=== PATIENT | male | born 1965 ===

== ENCOUNTER → 2021-05-13 10:44 | Outpatient (BNVA) | payer MEDICAID, SELFPAY | PROVIDERS: PCP Internal Medicine; Visit Provider Urology | DX: N48.6 Induration penis plastica (principal); N41.9 Inflammatory disease of prostate, unspecified; R39.15 Urgency of urination; E11.9 Type 2 diabetes mellitus without complications; I10 Essential (primary) hypertension; F41.9 Anxiety disorder, unspecified | CPT/HCPCS: 99202 ==

== ENCOUNTER 2023-02-24 13:40 | Outpatient (AMB) | payer MEDICAID, SELFPAY ==
--- NOTE | 2023-02-24 13:46 | A.OFFVIS_ITS ---
Intake Intake Visit Reasons: Prostatitis- follow up Intake Note: Patient presents for follow up prostatitis/peyronie's disease Urology Medications: tadalafil Blood Thinner: none Organic Preparation Analyst Required: No Accompanied by: Self / Same As Patient Allergies Sulfa (Sulfonamide Antibiotics) Allergy (Unknown, Verified 02/25/23 14:33) Unknown Medication List - Last Reconciled 02/25/23 by Irma Ruelas, MILLED RICE BROKER- amlodipine 10 mg PO DAILY buprenorphine-naloxone 4-1 mg (Suboxone) 5 mg sublingual BEDTIME clonazepam 0.5 mg PO TID PRN insulin glargine (Lantus Solostar U-100 Insulin) units subcut lisinopril 40 mg PO DAILY metformin 500 mg PO DAILY pen needle, diabetic (BD Ultra-Fine Short Pen Needle) As directed pentoxifylline ER 400 mg PO BID 90 days sertraline 0 mg PO tadalafil 5 mg PO DAILY PRN 90 days tadalafil (Cialis) 5 mg PO DAILY 90 days vitamin E (dl, acetate) 450 mg PO DAILY 90 days HPI HPI Comments History of Present Illness Details Claude is a very pleasant 57-year-old male patient of Dr. Lozano. He has a past medical history of anxiety, diabetes, and hypertension. He presents to the office today for follow-up of his erectile dysfunction and Peyronie's disease. In discussion with the patient today reports to be doing and feeling well. He discusses following up with Dr. Antoine and Dr. Juarez in the past for his erectile dysfunction and Peyronie's disease. He discusses having had injection therapy for Peyronie's disease with Dr. Juarez however feels this has not been beneficial. He discusses feeling erectile dysfunction is worsening. Discussed at length uncontrolled diabetes and Suboxone in relation to erectile dysfunction. Patient discusses she continues to wean off of Suboxone and is attempting to better control his diabetes. He also has longstanding history of chronic prostatitis. He currently denies any urinary issues or concerns. He denies urinary urgency, urinary frequency, incontinence, nocturia, hematuria, foul smelling urine, changes to urinary stream, flank pain, fever, and or chills. He is happy with his current voiding parameters. He reports chronic dysuria. In office urinalysis results reviewed with the patient today. [facility] Medical History Anxiety Diabetes mellitus HTN (hypertension) Review of Systems Const Reports as per HPI Eyes Reports no additional complaints ENT Reports no additional complaints Card Reports as per HPI Resp Reports no additional complaints GI Reports no additional complaints Reports as per HPI Musc Reports no additional complaints Neuro Reports no additional complaints Psych Reports no additional complaints Endo Reports as per HPI Duncan/Lymph Reports no additional complaints Aller/Immun Reports no additional complaints Physical Exam Const General: cooperative, healthy appearing, comfortable, no acute distress, well developed, alert and awake Orientation/consciousness: patient oriented x3 Limitations: no limitations HEENT Head: Yes normal to inspection, Yes normocephalic and Yes atraumatic Ears: hearing grossly normal bilaterally Eyes General: appearance normal, both eyes and all related structures Neck Neck: Yes normal visual inspection and Yes trachea midline Chest Chest palpation & inspection: normal inspection of the chest Resp Effort & Inspection: normal respiratory effort and able to speak in complete sentences Cardio Rate: regular rate GI Inspection: Yes normal to inspection General: Yes no CVA tenderness Penis: uncircumcised Meatus: meatus normal Scrotum: scrotum normal Testes: Testes normal Back/Spine/Pelvis Back: no CVA tenderness Skin General skin exam: no rashes or lesions noted Neuro General: patient oriented x3 Extrem General: Yes normal to inspection Psych Appearance: grossly normal and well kempt Mental Status: mental status grossly normal Speech and movement: Normal speech and movement present and Clear speech present Affect: normal affect Attitude: cooperative Thought process: Normal thought process present Thought content: Normal thought content present Results AMB Urinalysis, Automated UA Leukoctes 0 Jelani/uL Last Edit by Selina Tijerina on 02/24/23 14:13 UA Nitrite Negative Last Edit by Selina Tijerina on 02/24/23 14:13 UA Urobilinogen 0.2 mg/dL Last Edit by Selina Tijerina on 02/24/23 14:13 UA Protein 30 mg/dL Last Edit by Selina Tijerina on 02/24/23 14:13 UA pH 5.5 Last Edit by Selina Tijerina on 02/24/23 14:13 UA Blood 0 Eliceo/uL Last Edit by Selina Tijerina on 02/24/23 14:13 UA Specific [place] 1.030 Last Edit by Jaymeanderson Queenlaura on 02/24/23 14:13 UA Ketone Positive Last Edit by Manuelitopayton Bernicelaura on 02/24/23 14:13 UA Bilirubin 0 mg/dL Last Edit by Selina Bernicelaura on 02/24/23 14:13 UA Glucose 250 mg/dL Last Edit by Selina Bernicelaura on 02/24/23 14:13 Results Reviewed Results Reviewed: Laboratory Last Values Urine pH (Auto) 5.5 02/24/23 14:09 Specific [place] (Auto) 1.030 02/24/23 14:09 Urine Protein (Auto) 30 mg/dL 02/24/23 14:09 Glucose (UA)(Auto) 250 mg/dL 02/24/23 14:09 Urine Ketones (Auto) Positive 02/24/23 14:09 Urine Blood (Auto) 0 Eliceo/uL 02/24/23 14:09 Urine Nitrite (Auto) Negative 02/24/23 14:09 Urine Bilirubin (Auto) 0 mg/dL 02/24/23 14:09 Urine Urobilinogen (Auto) 0.2 mg/dL 02/24/23 14:09 Leukocyte Esterase (Auto) 0 Jelani/uL 02/24/23 14:09 Assessment & Plan Assessment & Plan (1) Peyronie's disease: Code(s): N48.6 - Induration penis plastica (2) Erectile dysfunction associated with type 2 diabetes mellitus: Code(s): E11.69 - Type 2 diabetes mellitus with other specified complication; N52.1 - Erectile dysfunction due to diseases classified elsewhere (3) Prostatitis: Code(s): N41.9 - Inflammatory disease of prostate, unspecified Plan In office urinalysis results reviewed with the patient today. Patient reports chronic dysuria with longstanding history of prostatitis. Discussed at length importance of continuing to decrease Suboxone dose if possible as well as managing diabetes for improvement in erectile dysfunction as well as overall health and well-being. Discussed importance of activity daily, healthy eating habits, and weight loss for improvement in erectile dysfunction as well as overall health and well- being. Information provided on Peyronie's disease Discussed Peyronie's disease at length Start pentoxifylline and vitamin-E. Discussed penile pump and importance of taking pictures of penis while erect for follow up with Dr. Antoine. Start low-dose Cialis 5 mg daily. Will obtain PSA for further assessment evaluation. Follow-up in [address] Antoine; or sooner with any issues, concerns, and or questions. Orders: Orders Prostate Specific Antigen Today N40.0 - Benign prostatic hyperplasia without lower urinary tract symptoms AMB Urinalysis Automated 02/24/23 Z13.9 - Encounter for screening, unspecified Medications: New pentoxifylline ER administer with meals 400 mg PO BID 90 days 180 tabs 1RF vitamin E (dl, acetate) 450 mg PO DAILY 90 days 90 caps 1RF N48.6 - Induration penis plastica tadalafil (Cialis) [id number] [facility] [id number] Member [id number] 5 mg PO DAILY 90 days 90 tabs 1RF Patient Instructions: The patient had an opportunity to ask questions regarding the treatment plan. All questions were answered. Physical exam, labs, and imaging were discussed and reviewed in detail. As well as risks, benefits, and discussion of treatment choices. No major barriers to understanding were identified. The patient expressed understanding and agreement with the above treatment plan. The patient was made aware they should contact our office by phone for worsening of their current condition, the appearance of new symptoms, or with any questions or concerns. Compliance is encouraged with any medications and follow up testing that is ordered. It is a privilege to be allowed the opportunity to participate in? your urological care.? Again, if you have any questions or concerns If you have any questions or concerns please do not hesitate to contact me. The office is [phone]. This note is constructed using voice recognition software. While every effort has been made to ensure accuracy production stage manager errors may have been included. Yours sincerely, CRISTIN Francis- Coding Level of Care Code Est Pt Level 4 (40290) Diagnoses Peyronie's disease N48.6 Erectile dysfunction associated with type 2 diabetes mellitus E11.69; N52.1 Prostatitis N41.9
== END 2023-02-24 14:44 | disposition home or self-care (01) ==
PROVIDERS: PCP Internal Medicine; Visit Provider Nurse Practitioner Family
DX: Z13.9 Encounter for screening, unspecified (principal)
CPT/HCPCS: 99214

== ENCOUNTER → 2023-02-24 13:40 | Outpatient (BNVA) | payer MEDICAID, SELFPAY | PROVIDERS: PCP Internal Medicine; Visit Provider Nurse Practitioner Family | DX: N48.6 Induration penis plastica (principal); N41.9 Inflammatory disease of prostate, unspecified; E11.69 Type 2 diabetes mellitus with other specified complication; N52.1 Erectile dysfunction due to diseases classified elsewhere | CPT/HCPCS: 81003; 99212 ==

== ENCOUNTER 2023-10-06 09:04 | Outpatient (AMB) | payer MEDICAID, SELFPAY ==
--- NOTE | 2023-10-06 09:43 | MHC.OFFVIS ---
Intake Intake Visit Reasons: follow up/prostatitis(confirmed) Intake Note: Patient presents for follow up prostatitis/peyronie's disease Urology Medications: tadalafil Blood Thinner: none Developmental Psychologist Required: No Accompanied by: Self / Same As Patient Allergies Sulfa (Sulfonamide Antibiotics) Allergy (Unknown, Verified 10/06/23 09:45) Unknown Medication List - Last Reconciled 10/06/23 by David Antoine MD amlodipine 10 mg PO DAILY buprenorphine-naloxone 4-1 mg (Suboxone) 5 mg sublingual BEDTIME clonazepam 0.5 mg PO TID PRN insulin glargine (Lantus Solostar U-100 Insulin) units subcut levofloxacin 500 mg PO Q24H 7 days lisinopril 40 mg PO DAILY metformin 500 mg PO DAILY pen needle, diabetic (BD Ultra-Fine Short Pen Needle) As directed pentoxifylline ER 400 mg PO BID 90 days sertraline 0 mg PO tadalafil 10 mg PO DAILY 90 days vitamin E (dl, acetate) 450 mg PO DAILY 90 days HPI HPI Comments History of Present Illness Details Claude is a pleasant male. He is a patient of Dr. Lozano. He is seen for following urologic conditions - Peyronie's disease - urinary urgency and frequency Peyronie's with prior injections Erectile dysfunction from diabetes - metformin with insulin Suboxone usage Prior trial oral antioxidants with vacuum pump Retrial vacuum pump with antioxidants Check testosterone and PSA at next visit Peyronie's disease Primary complaint is - hourglass to normally at base of penis follow-up trauma The problem has been present - recently At this time he experiences - partial erections that under rapid detumescence after penetration [place] has - is possible Associated symptoms include penile pain No penile discharge No Prior management includes - no treatment to date Associated conditions Trial of oral medications with VAC therapy PFSH Medical History Anxiety Diabetes mellitus HTN (hypertension) Review of Systems Const Denies chills and Denies fever(s) Card Reports no additional complaints and Denies syncope Resp Denies cough GI Denies abdominal pain and Denies heartburn Reports as per HPI and Denies change in libido Neuro Denies syncope Psych Denies change in libido Endo Denies change in libido Physical Exam Const General: cooperative, healthy appearing, comfortable and no acute distress Orientation/consciousness: patient oriented x3 HEENT Face and sinus: Yes normal facial exam Mouth: moist mucous membranes Neck Neck: Yes normal visual inspection, Yes full ROM and Yes trachea midline Chest Chest palpation & inspection: normal inspection of the chest Resp Effort & Inspection: normal respiratory effort, able to speak in complete sentences and no respiratory distress GI Inspection: Yes normal to inspection Back/Spine/Pelvis Cervical Spine: normal cervical lordosis Thoracic/Lumbar Spine: thoracic and lumbar spine normal to inspection Skin General skin exam: no rashes or lesions noted Neuro General: patient oriented x3, gait normal, tone normal and moves all extremities Extrem General: Yes normal to inspection and Yes capillary refill normal Assessment & Plan Assessment & Plan (1) Prostatitis: Code(s): N41.9 - Inflammatory disease of prostate, unspecified (2) Erectile dysfunction associated with type 2 diabetes mellitus: Code(s): E11.69 - Type 2 diabetes mellitus with other specified complication; N52.1 - Erectile dysfunction due to diseases classified elsewhere Plan Three-month follow-up Orders: Orders Prostate Specific Antigen 3 Months E11.69 - Type 2 diabetes mellitus with other specified complication, N52.1 - Erectile dysfunction due to diseases classified elsewhere Testosterone, Free/Total 3 Months E11.69 - Type 2 diabetes mellitus with other specified complication, N52.1 - Erectile dysfunction due to diseases classified elsewhere Patient Instructions: Imaging studies, laboratory and physical exam results were discussed and reviewed in detail. No major barriers to patient understanding were identified. An opportunity to ask questions regarding the treatment plan was provided. All questions were answered. The patient expressed understanding and agreement with the above treatment plan. The patient is aware they should contact our office by phone for worsening of their current condition or the appearance of new urologic symptoms. Compliance is encouraged with any medications and followup testing that is ordered. It is a privilege to participate in the urologic care of your patient. If you have any questions or concerns regarding treatment for the above conditions, or other urologic issues, please do not hesitate to contact me. The office telephone contact is [phone]. This note is constructed using voice recognition software. While every effort has been made to ensure accuracy cyber defense forensics analyst errors may have been included. Yours sincerely, Dr David Antoine MD, [facility] - Urology Providers of Expert, Compassionate Care for the Genitourinary System Coding Level of Care Code Est Pt Level 4 (81006) Diagnoses Prostatitis N41.9 Erectile dysfunction associated with type 2 diabetes mellitus E11.69; N52.1
== END 2023-10-06 10:07 | disposition home or self-care (01) ==
PROVIDERS: PCP Internal Medicine; Visit Provider Urology
DX: N41.9 Inflammatory disease of prostate, unspecified (principal); E11.69 Type 2 diabetes mellitus with other specified complication; N52.1 Erectile dysfunction due to diseases classified elsewhere
CPT/HCPCS: 99214

== ENCOUNTER → 2023-10-06 09:04 | Outpatient (BNVA) | payer MEDICAID, SELFPAY | PROVIDERS: PCP Internal Medicine; Visit Provider Urology | DX: E11.69 Type 2 diabetes mellitus with other specified complication (principal); N52.1 Erectile dysfunction due to diseases classified elsewhere; N41.9 Inflammatory disease of prostate, unspecified | CPT/HCPCS: 99212 ==

== ENCOUNTER 2023-11-15 11:31 | Outpatient (REF) | payer MEDICAID, SELFPAY ==
[2023-11-15 13:39] LABS: Prostate Specific Antigen 0.25 ng/mL (<0.05-4.0)
[2023-11-19 16:39] LABS: Testosterone, Free 51.3 pg/mL (35.0-155.0); Testosterone, Total 315 ng/dL (250-1100)
== END 2023-11-15 11:32 | disposition home or self-care (01) ==
LOC: HO.10HDL 11:31
PROVIDERS: Visit Provider Urology
DX: E11.69 Type 2 diabetes mellitus with other specified complication (principal); N52.1 Erectile dysfunction due to diseases classified elsewhere
CPT/HCPCS: 36415; 84153; 84402; 84403

== ENCOUNTER 2024-01-02 15:36 | Outpatient (AMB) | payer MEDICAID, SELFPAY ==
--- NOTE | 2024-01-02 15:46 | A.OFFVIS_ITS ---
Intake Visit Reasons: 3m/PSA/Testo(set) Intake Note: Patient is Present for Follow Up Urology Medication: Tadalafil Antibiotic Allergies:Sulfa Blood Thinners: None Allergies Sulfa (Sulfonamide Antibiotics) Allergy (Unknown, Verified 01/02/24 15:47) Unknown HPI Comments Details: Claude is a pleasant male. He is a patient of Dr. Lozano. He is seen for following urologic conditions - Peyronie's disease - urinary urgency and frequency Follow-up Testosterone 315, free T 51 normal range Initiate testosterone 2 pumps daily 2 month follow-up labs Peyronie's with prior injections Erectile dysfunction from diabetes - metformin with insulin Suboxone usage Peyronie's disease Primary complaint is - hourglass to normally at base of penis follow-up trauma The problem has been present - recently At this time he experiences - partial erections that under rapid detumescence after penetration [place] has - is possible Associated symptoms include penile pain No penile discharge No Prior management includes - no treatment to date Associated conditions Trial of oral medications with VAC therapy [facility] Medical History Diabetes mellitus Anxiety HTN (hypertension) Review of Systems Const Denies chills and Denies fever(s) Card Reports no additional complaints and Denies syncope Resp Denies cough GI Denies abdominal pain and Denies heartburn Reports as per HPI and Denies change in libido Neuro Denies syncope Psych Denies change in libido Endo Denies change in libido Physical Exam Const General: cooperative, healthy appearing, comfortable and no acute distress Orientation/consciousness: patient oriented x3 HEENT Face and sinus: Yes normal facial exam Mouth: moist mucous membranes Neck Neck: Yes normal visual inspection, Yes full ROM and Yes trachea midline Chest Chest palpation & inspection: normal inspection of the chest Resp Effort & Inspection: normal respiratory effort, able to speak in complete sentences and no respiratory distress GI Inspection: Yes normal to inspection Back/Spine/Pelvis Cervical Spine: normal cervical lordosis Thoracic/Lumbar Spine: thoracic and lumbar spine normal to inspection Skin General skin exam: no rashes or lesions noted Neuro General: patient oriented x3, gait normal, tone normal and moves all extremities Extrem General: Yes normal to inspection and Yes capillary refill normal Assessment & Plan Assessment & Plan (1) Hypogonadism in male: Code(s): E29.1 - Testicular hypofunction Category: Medical Plan Initiate testosterone replacement Two month follow-up labs Orders: Orders Testosterone, Free/Total 2 Months E29.1 - Testicular hypofunction Medications: New testosterone apply 2 pumps over max area - alternate shoulders on alternate days 2 pumps topical DAILY 75 grams 1RF 30 days E29.1 - Testicular hypofunction, R79.89 - Other specified abnormal findings of blood chemistry Patient Instructions: Imaging studies, laboratory and physical exam results were discussed and re viewed in detail. No major barriers to patient understanding were identified. An opportunity to ask questions regarding the treatment plan was provided. All questions were answered. The patient expressed understanding and agreement with the above treatment plan. The patient is aware they should contact our office by phone for worsening of their current condition or the appearance of new urologic symptoms. Compliance is encouraged with any medications and followup testing that is ordered. It is a privilege to participate in the urologic care of your patient. If you have any questions or concerns regarding treatment for the above conditions, or other urologic issues, please do not hesitate to contact me. The office telephone contact is [phone]. This note is constructed using voice recognition software. While every effort has been made to ensure accuracy drafter (cad) electrical errors may have been included. Yours sincerely, Dr David Antoine MD, [facility] - Urology Providers of Expert, Compassionate Care for the Genitourinary System Coding Level of Care Code Est Pt Level 4 (64667) Diagnoses Hypogonadism in male E29.1
== END 2024-01-02 16:07 | disposition home or self-care (01) ==
PROVIDERS: PCP Internal Medicine; Visit Provider Urology
DX: E29.1 Testicular hypofunction (principal)
CPT/HCPCS: 99214

== ENCOUNTER → 2024-01-02 15:36 | Outpatient (BNVA) | payer MEDICAID, SELFPAY | PROVIDERS: PCP Internal Medicine; Visit Provider Urology | DX: N48.6 Induration penis plastica (principal); R39.15 Urgency of urination; R35.0 Frequency of micturition | CPT/HCPCS: 99212 ==

== ENCOUNTER 2024-03-18 12:10 | Outpatient (REF) | payer MEDICAID, SELFPAY ==
[2024-03-23 19:18] LABS: Testosterone, Free 73.3 pg/mL (35.0-155.0); Testosterone, Total 434 ng/dL (250-1100)
== END 2024-03-18 12:11 | disposition home or self-care (01) ==
LOC: HO.10HDL 12:10
PROVIDERS: Visit Provider Urology
DX: E29.1 Testicular hypofunction (principal)
CPT/HCPCS: 36415; 84402; 84403

== ENCOUNTER 2024-03-22 15:17 | Outpatient (AMB) | payer MEDICAID, SELFPAY ==
--- NOTE | 2024-03-22 15:19 | A.OFFVIS_ITS ---
Intake Visit Reasons: Test Lab results Intake Note: Patient is Present for Follow Up Urology Medication: Tadalafil Antibiotic Allergies:Sulfa Blood Thinners: None Rn Case Manager Required: No Allergies Sulfa (Sulfonamide Antibiotics) Allergy (Unknown, Verified 03/22/24 15:21) Unknown HPI Comments Details: Claude is a pleasant male. He is a patient of Dr. Lozano. He is seen for following urologic conditions - Peyronie's disease - urinary urgency and frequency Did not tolerate gel Has been off Suboxone Will try pituitary restart with eclomiphene Follow-up Testosterone 315, free T 51 normal range Peyronie's with prior injections Erectile dysfunction from diabetes - metformin with insulin Suboxone usage Peyronie's disease Primary complaint is - hourglass to normally at base of penis follow-up trauma The problem has been present - recently At this time he experiences - partial erections that under rapid detumescence after penetration [place] has - is possible Associated symptoms include penile pain No penile discharge No Prior management includes - no treatment to date Associated conditions Trial of oral medications with VAC therapy PFSH Medical History Diabetes mellitus Anxiety HTN (hypertension) Review of Systems Const Denies chills and Denies fever(s) Card Reports no additional complaints and Denies syncope Resp Denies cough GI Denies abdominal pain and Denies heartburn Reports as per HPI and Denies change in libido Neuro Denies syncope Psych Denies change in libido Endo Denies change in libido Physical Exam Const General: cooperative, healthy appearing, comfortable and no acute distress Orientation/consciousness: patient oriented x3 HEENT Face and sinus: Yes normal facial exam Mouth: moist mucous membranes Neck Neck: Yes normal visual inspection, Yes full ROM and Yes trachea midline Chest Chest palpation & inspection: normal inspection of the chest Resp Effort & Inspection: normal respiratory effort, able to speak in complete sentences and no respiratory distress GI Inspection: Yes normal to inspection Back/Spine/Pelvis Cervical Spine: normal cervical lordosis Thoracic/Lumbar Spine: thoracic and lumbar spine normal to inspection Skin General skin exam: no rashes or lesions noted Neuro General: patient oriented x3, gait normal, tone normal and moves all extremities Extrem General: Yes normal to inspection and Yes capillary refill normal Assessment & Plan Assessment & Plan (1) Erectile dysfunction associated with type 2 diabetes mellitus: Code(s): E11.69 - Type 2 diabetes mellitus with other specified complication; N52.1 - Erectile dysfunction due to diseases classified elsewhere Category: Medical (2) Hypogonadism in male: Code(s): E29.1 - Testicular hypofunction Category: Medical Plan Three-month follow-up lab work Orders: Orders Prostate Specific Antigen 3 Months E29.1 - Testicular hypofunction Testosterone, Total 3 Months E29.1 - Testicular hypofunction Patient Instructions: Imaging studies, laboratory and physical exam results were discussed and reviewed in detail. No major barriers to patient understanding were identified. An opportunity to ask questions regarding the treatment plan was provided. All questions were answered. The patient expressed understanding and agreement with the above treatment plan. The patient is aware they should contact our office by phone for worsening of their current condition or the appearance of new urologic symptoms. Compliance is encouraged with any medications and followup testing that is ordered. It is a privilege to participate in the urologic care of your patient. If you have any questions or concerns regarding treatment for the above conditions, or other urologic issues, please do not hesitate to contact me. The office telephone contact is [phone]. This note is constructed using voice recognition software. While every effort has been made to ensure accuracy clinical operations leader errors may have been included. Yours sincerely, Dr David Antoine MD, [facility] - Urology Providers of Expert, Compassionate Care for the Genitourinary System Coding Level of Care Code Est Pt Level 4 (43041) Diagnoses Erectile dysfunction associated with type 2 diabetes mellitus E11.69; N52.1 Hypogonadism in male E29.1
== END 2024-03-22 16:12 | disposition home or self-care (01) ==
PROVIDERS: PCP Internal Medicine; Visit Provider Urology
DX: E11.69 Type 2 diabetes mellitus with other specified complication (principal); N52.1 Erectile dysfunction due to diseases classified elsewhere; E29.1 Testicular hypofunction
CPT/HCPCS: 99214

== ENCOUNTER → 2024-03-22 15:17 | Outpatient (BNVA) | payer MEDICAID, SELFPAY | PROVIDERS: PCP Internal Medicine; Visit Provider Urology | DX: N48.6 Induration penis plastica (principal); R39.15 Urgency of urination; R35.0 Frequency of micturition | CPT/HCPCS: 99212 ==

== ENCOUNTER 2024-10-11 12:15 | Outpatient (REF) | payer MEDICAID, SELFPAY ==
--- OUTSIDE RECORDS SUMMARY | 2024-10-11 13:04 | XMS_ITS | Clinical Summary ---
Author Organization [facility] Address [address] [id number] Care Team Providers Care Business Center Attendant Name Role Phone Cameron Díaz MD Primary Care Provider [phone] Allergies Active Allergy Reactions Criticality Noted Date Comments Morphine 10/20/2017 Sulfa Antibiotics 10/20/2017 Medications Medication Sig Dispensed Refills Start Date End Date Status PRALUENT 75 MG/ML SOPN 0 10/18/2017 Active amLODIPine (NORVASC) tablet 5 mg TAKE 1 TABLET BY MOUTH EVERY DAY 3 09/11/2017 Active LANTUS SOLOSTAR 100 UNIT/ML injection INJECT 10 UNITS SUBCUTANEOUSLY ONCE A DAY 5 09/11/2017 Active lisinopril (PRINIVIL,ZESTRIL ) tablet 40 mg TAKE 1 TABLET BY MOUTH EVERY DAY 11 10/06/2017 Active sertraline (ZOLOFT) 100 MG tablet Take 150 mg by mouth daily. 3 08/01/2017 Active clopidogrel (PLAVIX) 75 MG tablet Take 1 tablet (75 mg total) by mouth daily. 30 tablet 2 04/01/2022 Active aspirin EC 81 MG tablet Take 1 tablet (81 mg total) by mouth daily. 30 tablet 2 04/01/2022 Active acetaminophen (TYLENOL) 325 MG tablet Take 2 tablets (650 mg total) by mouth every 6 (six) hours as needed for pain for up to 15 doses. 15 tablet 0 10/25/2022 Active cyclobenzaprine (FLEXERIL) 10 MG tablet Take 1 tablet (10 mg total) by mouth 3 (three) times a day as needed for muscle spasms for up to 15 doses. 15 tablet 0 10/25/2022 Active lidocaine (LIDODERM) 5 % Place 1 patch onto the skin daily. Remove & Discard patch within 12 hours or as directed by 30 patch 0 10/25/2022 Active Active Problems Problem Noted Date Diagnosed Date TIA (transient ischemic attack) 04/01/2022 Headache 04/01/2022 Microscopic hematuria UTI (urinary tract infection) Bladder pain Social History Tobacco Use Types Packs/Day Years Used Date Smoking Tobacco: Never Smokeless Tobacco: Never Alcohol Use Standard Drinks/Week Comments No 0 (1 standard drink = 0.6 oz pur e alcohol) Sex and Gender Information Value Date Recorded Sex Assigned at Male 04/01/2022 9:32 PM EDT Gender Identity Male 06/02/2023 11:13 AM EST Sexual Orientation Not on file Job Start Date Occupation Industry Not on file Not on file Not on file Last Filed Vital Signs Vital Sign Reading Time Taken Comments Blood Pressure 162/88 06/02/2023 2:05 PM EST Pulse 71 06/02/2023 2:05 PM EST Temperature 36.7 ??C (98.1 ??F) 06/02/2023 2:05 PM ES T Respiratory Rate 16 06/02/2023 2:05 PM EST Oxygen Saturation 93% 06/02/2023 10:41 AM EST Inhaled Oxygen Concentration - - Weight 86.2 kg (190 lb) 06/02/2023 10:41 AM EST Height 165.1 cm (5' 5 ) 06/02/2023 10:41 AM EST Body Mass Index 31.62 06/02/2023 10:41 AM EST Plan of Treatment Health Maintenance Due Date Last Done Comments Hepatitis C Screening 1965 COVID-19 Vaccine (#1) 05/12/1964 Depression Screening 1975 Preventative Health Evaluation 11/09/1981 DTap / Tdap / Td (1 - Tdap) 11/09/1982 Colon Cancer Screening (Colonoscopy) 11/09/2008 Shingrix-Zoster Vaccine (1 of 2) 11/09/2013 Influenza Vaccine (#1) 2024 RSV Adult > 60+ Yrs or Pregn ant (1 - 1-dose 75+ series) 11/09/2038 Pneumococcal Vaccine Aged Out 09/20/2017 No long er eligible based on patient's age to complete this topic Hepatitis B Vaccines Aged Out No long er eligible based on patient's age to complete this topic RSV Ped < 20 months Aged Out No longe r eligible based on patient's age to complete this topic Care Teams Business Center Attendant Relationship Specialty Start Date End Date Cameron Díaz MD [address] [place] [address] PCP - General Motor Coach Supervisor 10/25/22
--- OUTSIDE RECORDS SUMMARY | 2024-10-11 13:04 | XMS_ITS | Clinical Summary ---
Author Organization [facility] Address [address] [place] [address] Care Team Providers Care Radio Script Writer Name Role Phone Sanjiv Maldonado PA-C Primary Care Provider [phone] Allergies Active Allergy Reactions Criticality Noted Date Comments Doxazosin Other (See Comments) 04/07/2023 Morphine Itching Low 10/20/2017 Sulfa Antibiotics Rash/Dermatitis High 10/20/2017 Medications amLODIPine (NORVASC) 10 MG tablet Take 1 tablet (10 mg total) by mouth daily. 3 Active buprenorphine extended release (Sublocade) 100 MG/0.5ML injection 1.5 mL Subcutaneous once every 4 weeks for 30 days 3 Active clonazePAM (KlonoPIN) 0.5 MG tablet Take 1 tablet (0.5 mg total) by mouth 3 (three) times a day. 3 Active clotrimazole (LOTRIMIN) 1 % cream 1 Application. Activ e Lantus SoloStar 100 UNIT/ML prefilled pen injection 42 UNITS SUBCUTANEOUS NIGHTLY 30 DAYS 3 Active lidocaine (LIDODERM) 5 % patch Place 1 patch on the skin every 24 hours. 3 Active lisinopril (PRINIVIL,ZeSTR IL) 40 MG tablet Take 1 tablet (40 mg total) by mouth daily. 3 Active metFORMIN (GLUCOPHAGE-XR) 500 MG 24 hr tablet 1 tablet with evening meal Orally Once a day Active Sertraline HCl 150 MG Cap 1 capsule. Active Social History Tobacco Use Types Packs/Day Years Used Date Smoking Tobacco: Never Assessed Sex and Gender Information Value Date Recorded Sex Assigned at Male 04/07/2023 1:21 PM EDT Legal Sex Male 3:44 PM EDT Gender Identity Male 04/07/2023 1:21 PM EDT Sexual Orientation Heterosexual (straight) 04/07 1:21 PM EDT Last Filed Vital Signs Vital Sign Reading Time Taken Comments Blood Pressure 163/96 04/07/2023 1:34 PM EDT Pulse 105 04/07/2023 1:34 PM EDT Temperature 36.5 ??C (97.7 ??F) 04/07/2023 1:34 PM ED T Respiratory Rate 18 04/07/2023 1:34 PM EDT Oxygen Saturation - - Inhaled Oxygen Concentration - - Weight 84.4 kg (186 lb) 04/07/2023 1:34 PM EDT Height 162.6 cm (5' 4 ) 04/07/2023 1:34 PM EDT Body Mass Index 31.93 04/07/2023 1:34 PM EDT Plan of Treatment Health Maintenance Due Date Last Done Comments Hepatitis C Virus Screening 1965 Pneumococcal Vaccine: Pediatric (0-5 Years) and At-Risk Patients (6 to 49 Years) (1 of 2 - PCV) 11/09/1969 HIV Screening 11/09/1976 DTaP/Tdap/Td Vaccines (1 - Tdap) 11/09/1982 Pneumococcal Vaccines 50+ (1 of 2 - PCV) 11/09/1982 Colonoscopy 11/09/2008 Zoster (Shingles) Vaccine (1 of 2) 11/09/2013 RSV Vaccine 60 years and older and Patients (1 - Risk 60-74 years 1-dose series) 2023 Influenza Vaccine 01/25/2024 04/08/2022, , 04/12/2017, Additional history exists COVID-19 Vaccine ( season) 2024 10/22/2020, 10/02/2020 Hepatitis B Vaccines Aged Out No long er eligible based on patient's age to complete this topic Insurance [facility] Care Teams Radio Script Writer Relationship Specialty Start Date End Date Sanjiv Maldonado PA-C [address] [place] [address] PCP - General 03/29/23
--- OUTSIDE RECORDS SUMMARY | 2024-10-11 13:04 | XMS_ITS | Referral Summary ---
Author Organization [facility] Address [address] [place] [address] Care Team Providers Care Carton Forming Machine Adjuster Name Role Phone Cameron Hunt Primary Care Provider [phone] Allergies Active Allergy Reactions Criticality Noted Date Comments Morphine Itching 11/08/2022 Social History Tobacco Use Types Packs/Day Years Used Date Smoking Tobacco: Never Assessed Sex and Gender Information Value Date Recorded Sex Assigned at Not on file Legal Sex Male 5:15 AM EDT Gender Identity Not on file Sexual Orientation Not on file Last Filed Vital Signs Vital Sign Reading Time Taken Comments Blood Pressure 124/87 11/08/2022 1:54 PM EDT Pulse 73 11/08/2022 1:54 PM EDT Temperature 36.6 ??C (97.9 ??F) 11/08/2022 12:49 PM E DT Respiratory Rate 20 11/08/2022 1:54 PM EDT Oxygen Saturation 96% 11/08/2022 1:54 PM EDT Inhaled Oxygen Concentration - - Weight - - Height - - Body Mass Index - - Plan of Treatment Not on file Insurance [employer] Care Teams Carton Forming Machine Adjuster Relationship Specialty Start Date End Date Cameron Hunt [address] [place] [address] PCP - General Internal Medicine 11/08/22
--- OUTSIDE RECORDS SUMMARY | 2024-10-11 13:04 | XMS_ITS ---
Author Organization [facility] Address [address] [facility] [address] [place] [address] Care Team Providers Care Dye House Supervisor Name Role Phone LAINE FRANCO Primary Care Provider Beto Scott [phone] REASON FOR VISIT Sublocade Question Encounters Encounter Location Date Provider Diagnosis [facility] [address] [facility] [address] [place] [address] 10/08/2024 Beto Scott Plan Of Treatment No Information Progress Notes * Aki TAMEZOB:1965 (58 yo M)Acc No.[id number]:10/08/2024 Patient:?DASHAWN, Sudheer :1965???Age:58 Y???Sex:Male Address:[address] [place] [id number] * true * Date:? Generated for Lakiai marycarmen/Mary/eTransmitting on:?10/11/2024 01:04 PM EDT
--- OUTSIDE RECORDS SUMMARY | 2024-10-11 13:04 | XMS_ITS ---
Author Organization [facility] Address [address] [address] Care Team Providers Care Dependency Director Name Role Phone LAINE FRANCO Primary Care Provider [phone] REASON FOR VISIT Weight loss Encounters Encounter Location Date Provider Diagnosis [facility] [address] [facility] [address] [place] [address] 09/19/2023 LAINE FRANCO Plan Of Treatment No Information Progress Notes * Aki TAMEZOB:1965 (57 yo M)Acc No.[id number]:09/19/2023 Patient:?Sudheer TAMEZ :1965???Age:57 Y???Sex:Male Address:[address] [place] [phone] * true * Date:? Generated for Blair conroy/Mary/eTransmitting on:?10/11/2024 01:04 PM EDT
--- OUTSIDE RECORDS SUMMARY | 2024-10-11 13:04 | XMS_ITS | Clinical Summary ---
Author Organization [address] Address [address] [place] [phone] Phone Care Team Providers Care V Belt Curer Name Role Phone Unavailable Primary Care Provider Unavailabl e Social History Tobacco Use Types Packs/Day Years Used Date Smoking Tobacco: Never Assessed Sex and Gender Information Value Date Recorded Sex Assigned at Not on file Legal Sex Male 9:03 PM EDT Gender Identity Not on file Sexual Orientation Not on file Plan of Treatment Health Maintenance Due Date Last Done Comments HIV screening 11/09/1976 Hepatitis C screening 11/09/1981 Tetanus adult (Td q 10,TDAP once) 1983 Lipid disorder screening 2003 Colon cancer screening, Colonoscopy 11/09/2008 Diabetes screening 11/09/2008 Shingles vaccine (Shingrix) (1 of 2 - Shingrix (RZV) 2 Dose Standard Series) 11/09/2013 Pneumococcal Vaccine (50+ ye ars) (2 of 2 - PCV) 09/20/2018 09/20/2017 Covid-19 vaccine series (1 - 2023- season) 2024 Influenza vaccine 02/24/2025 RSV Immunization (1 - 1-dose 75+ series) 11/09/2038 Pneumococcal Vaccine (2 - 49 years) Discontinued 09/20/2017 Meningococcal Vaccine Aged Out No becky kristina eligible based on patient's age to complete this topic
--- OUTSIDE RECORDS SUMMARY | 2024-10-11 13:04 | XMS_ITS | Clinical Summary ---
Author Organization [facility] Address [address] [place] [address] Care Team Providers Care Zigzag Appliquer Name Role Phone Cameron Hunt Primary Care Provider [phone] Allergies Active Allergy Reactions Criticality Noted Date [...] Mass Index - - Plan of Treatment Health Maintenance Due Date Last Done Comments Cologuard 1965 Colon Cancer Screening 1963 Colonoscopy 1963 FOBT / Fit Test 1963 HIV Screening 1963 Hepatitis C Screening 1963 Sigmoidoscopy 1963 DTaP,Tdap,and Td Vaccines (1 - Tdap) 11/09/1985 Pneumococcal Vaccine: 50+ Ye ars (1 of 1 - PCV) 11/09/2013 Zoster Vaccines (1 of 2) 11/09/2013 RSV Vaccine (60+ years old a nd patients) (1 - Risk 60-74 years 1-dose series) 2023 COVID-19 Vaccine (2023-2 5 season) 2024 Alcohol/Substance Use Screening 06/26/2024 Depression Screening and Follow-Up 06/26/2024 Social Drivers of Health Maria Ines ual Screening 06/26/2024 Influenza Vaccine (Season Ended) 2025 04/08/20 22 Hepatitis B Vaccines Aged Out No long er eligible based on patient's age to complete this topic Insurance [facility] [id number] Care Teams Zigzag Appliquer Relationship Specialty Start Date End Date Cameron Hunt [address] [place] [address] PCP - General Internal Medicine 11/08/22
--- OUTSIDE RECORDS SUMMARY | 2024-10-11 13:04 | XMS_ITS ---
Author Organization [facility] Address [address] [facility] [address] [place] [address] Care Team Providers Care Environmental Geologist Name Role Phone LAINE FRANCO Primary Care Provider REASON FOR VISIT Medical record sampler pickup Encounters Encounter Location Date Provider Diagnosis [facility] [address] [facility] [address] [place] [address] 08/07/2023 LAINE FRANCO Plan Of Treatment No Information Progress Notes * Aki TAMEZOB:1965 (57 yo M)Acc No.[id number]:08/07/2023 Patient:?ROBERT Sudheer :1965???Age:57 Y???Sex:Male Address:[address] [place] [phone] * true * Date:? Generated for Lakiai marycarmen/Mary/eTransmitting on:?10/11/2024 01:04 PM EDT
--- OUTSIDE RECORDS SUMMARY | 2024-10-11 13:04 | XMS_ITS | Clinical Summary ---
Author Organization [employer] [facility] Address [address] [place] [address] Care Team Providers Care Processing Assistant Name Role Phone Cameron Hunt MD Primary Care Provider Surgical History Surgery Date Site/Laterality Comments COLONOSCOPY PROCEDURE:COLONOSCOPY COLECTOMY PROCEDURE:LAPAROSCOPIC COLON RESECTION PARATHYROIDECTOMY PROCEDURE:PARATHYROIDECTOMY CYSTOSCOPY PROCEDURE:CYSTOSCOPY URETEROLITHOTOMY PROCEDURE:URETEROLITHOTOMY Medical History Medical History Date Comments Prostatitis DX:Prostatitis Microscopic hematuria DX:Microsc opic hematuria UTI (urinary tract infection) DX :UTI (urinary tract infection) Bladder pain DX:Bladder pain Hypertension DX:Hypertension Diabetes mellitus (CMS/HCC V24, CMS/HCC V28) DX:Diabetes mellitus ([facility]) Social History Tobacco Use Types Packs/Day Years Used Date Smoking Tobacco: Never Smokeless Tobacco: Never Alcohol Use Standard Drinks/Week Comments No 0 (1 standard drink = 0.6 oz pur e alcohol) Sex and Gender Information Value Date Recorded Sex Assigned at Not on file Legal Sex Male 5:47 AM EST Gender Identity Not on file Sexual Orientation Not on file Obstetrics History Plan of Treatment Health Maintenance Due Date Last Done Comments DTaP,Tdap,and Td Vaccines (1 - Tdap) 11/09/1982 Pneumococcal Vaccine: 50+ Ye ars (1 of 1 - PCV) 11/09/2013 Zoster Vaccines (1 of 2) 11/09/2013 Cholesterol Screening (Lipid Panel) 05/29/2022 Colorectal Cancer Screening: Colonoscopy 05/29/2022 Depression Screening 05/29/2022 HIV Screening 05/29/2022 Hepatitis C Screening 05/29/2022 Social Influencers of Health Screening 05/29/2022 RSV Immunization Adult Patie nts (1 - Risk 60-74 years 1-dose series) 2023 COVID-19 Vaccine (2023-2 5 season) 2024 Influenza Vaccine (Season Ended) 2025 HIB Vaccines Aged Out No longer eligi ble based on patient's age to complete this topic HPV Vaccines Aged Out No longer eligi ble based on patient's age to complete this topic Hepatitis A Vaccines Aged Out No long er eligible based on patient's age to complete this topic Hepatitis B Vaccines Aged Out No long er eligible based on patient's age to complete this topic IPV Vaccines Aged Out No longer eligi ble based on patient's age to complete this topic MMR Vaccines Aged Out No longer eligi ble based on patient's age to complete this topic Meningococcal ACWY Vaccine Aged Out N o longer eligible based on patient's age to complete this topic Meningococcal B Vaccine Aged Out No l onger eligible based on patient's age to complete this topic Pneumococcal Vaccine: Pediat rics (0 to 5 Years) and At-Risk Patients (6 to 64 Years) Aged Out No longer eligible b ased on patient's age to complete this topic RSV Immunization Patients Un amber 20 months Aged Out No longer eligible b ased on patient's age to complete this topic Varicella Vaccines Aged Out No longer eligible based on patient's age to complete this topic Care Teams Processing Assistant Relationship Specialty Start Date End Date Cameron Hunt MD [address] [place] [address] PCP - General 10/25/22
--- OUTSIDE RECORDS SUMMARY | 2024-10-11 13:04 | XMS_ITS | Patient Health Record ---
Author Organization [facility] [facility] Address [address] [facility] [address] [place] [address] Care Team Providers Care Optics Manufacturing Technician Name Role Phone LAINE FRANCO Primary Care Provider [phone] Beto Scott Unavailable [phone] Allergies Allergen (clinical drug ingredient) Drug/Non Drug Allergy documented on EMR Reaction Allergy Type Onset Date Status doxazosin Cardura dizziness Drug Allergy Active morphine Morphine ITCHY Drug Allergy Active Substance with sulfonamide structure and antibacterial mechanism of action (substance) Sulfa Antibiotics SORES Drug Allergy Active Reason For Referral No Information Medications Medication SIG (Take, Route, Frequency, Duration) Notes Start Date End Date Status Suboxone 2-0.5 MG 1 film under the ton gaby and allow to dissolve Sublingual Once a day for 7 days 05/25/2023 Active Sublocade 100 MG/0.5ML 1.5 mL Subcutaneo us once every 4 weeks for 30 days 03/30/2023 Active Sertraline HCl 150 MG 1 capsule Orally O nce a day Active Lisinopril 40 MG 1 tablet Orally Once a day Active metFORMIN HCl ER 500 MG 1 tablet with ev ening meal Orally Once a day Active Terbinafine Active Lantus SoloStar 100 UNIT/ML 42 UNITS SUBCUTANEOUS NIGHTLY 30 DAYS for 30 Active clonazePAM 0.5 MG 1 tablet Orally THRE E TIMES A DAY Active Clotrimazole 1 % 1 application Tarper ally Twice a day Active amLODIPine Besylate 10 MG 1 tablet Orally Once a day Active Social History Tobacco Use: Social History Observation Description Date Details (start date - stop date) Current some da y smoker NA - NA Tobacco Use/Smoking Question Answer Notes Are you a current some day smoker Additional Findings: Tobacco User Snuff user Alcohol Screen (Audit-C) Question Answer Notes Did you have a drink containing alcohol in the p ast year? 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) Type 2 diabetes mellitus with unspecified complications (E11.8) Active confirmed Problem Opioid dependence (31308369) Opioid dependence, uncomplicated (F11.20) Active confirmed Problem Generalized anxiety disorder (48286862) Generalized anxiety disorder (F41.1) Active confirmed Problem Essential hypertension (76926407) Essential (primary) hypertension (I10) Active confirmed Encounters Encounter Location Date Provider Diagnosis [facility] [address] [address] 10/08/2024 Beto Scott Plan Of Treatment No Information Insurance Providers Payer Name Payer Address Payer Phone Subscriber Number Group Number Insured Name Patient Relationship to Insured Coverage Start Date Coverage End Date [place] [address] [place] [phone] [id number] Sudheer Tamez Self - patient is the insured Medical (General) History Medical History History ICD Code Type II diabetes mellitus Hypertension Opioid use disorder Generalized anxiety disorder Insomnia Surgical History Surgery Date(Month/Year) multiple parathyroid surgeries multiple kidney stone surgeries hemicolectomy, diverticulitis
--- OUTSIDE RECORDS SUMMARY | 2024-10-11 13:05 | XMS_ITS ---
Author Name [facility] Organization Unknown Results Test Name/Text Value Interpretation Date Range Source Troponin I SerPl HS-mCnc 4ng/L Normal [id number] 0 - 20 [facility] CREAT SERPL MCNC 0.7mg/dL Normal [id number] 0.7 - 1.3 [facility] CALCIUM SERPL [facility]NC 9.5mg/dL Normal [id number] 8.4 - 10 .2 [facility] SODIUM SERPL SC[facility] 137mmol/L Normal [id number] 135 - 145 [facility] ANION GAP SERPL [facility] 6mmol/L Normal [id number] 5 - 14 [facility] Glomerular filtration rate/1.73 sq M. predicted 106 Normal [id number] 60 - [facility] HCO3 SER SCNC 29mmol/L Normal [id number] 24 - 32 [facility] GLUCOSE SERPL MCNC 218mg/dL Above high normal [id number] 70 - 199 [facility] BUN SERPL [facility] 25mg/dL Above high normal [id number] 9 - 20 [facility] CHLORIDE SERPL [facility] 102mmol/L Normal [id number] 98 - 10 7 [facility] POTASSIUM SERPL SCNC 4mmol/L Normal [id number] 3.5 - 5.1 [facility] PLATELET NO. BLD AUTO 163K/uL Normal [id number] 150 - 450 [facility] RBC NO. BLD AUTO 4.43M/uL Below low normal [id number] 4.7 - 6 [facility] NUCLEATED RBC 0% Normal [id number] 0 - 1 [facility] LYMPHOCYTES NO. BLD AUTO 1K/uL Normal [id number] 1 - 3.2 [facility] EOSINOPHIL NO. BLD AUTO 0.2K/uL Normal [id number] 0 - 0.5 [facility] MCH RBC QN AUTO 29.3pg Normal [id number] 25 - 33 C [facility] MCHC RBC AUTO MCNC 33.7g/dL Normal [id number] 32 - 36 [facility] MONOCYTES NFR BLD AUTO 7.2% Normal [id number] 2 - 12 [facility] IMMATURE GRANULOCYTE, ABSOLUTE 0.02k/uL Normal [id number] - 0.1 [facility] LYMPHOCYTES NFR BLD AUTO 15.4% Below low normal [id number] 20 - 48 [facility] EOSINOPHIL NFR BLD AUTO 3% Normal [id number] 0 - 6 [facility] HGB BLD MCNC 13g/dL Below low normal [id number] 13.5 - 18 [facility] NEUTROPHILS NO. BLD AUTO 4.7K/uL Normal [id number] 1. 8 - 7.8 [facility] WBC NO. BLD AUTO 6.4K/uL Normal [id number] 4 - 10.5 [facility] BASOPHILS NFR BLD AUTO 0.3% Normal [id number] 0 - 2 [facility] MONOCYTES NO. BLD AUTO 0.5K/uL Normal [id number] 0 - 0.8 [facility] MCV RBC AUTO 87.1fL Normal [id number] 78 - 100 [facility] NEUTROPHILS NFR BLD AUTO 73.8% Normal [id number] 44 - 74 [facility] IMMATURE GRANULOCYTE, PERCENT 0.3% Normal [id number] 0 - 1 [facility] BASOPHILS IN BLOOD BY AUTOMATED COUNT 0K/uL Normal [id number] 0 - 0.2 [facility] PMV BLD AUTO 10.7fL Normal [id number] 7.4 - 11.4 [facility] RDW RBC AUTO RTO 13.5% Normal [id number] 12.1 - 17. 7 [facility] HCT VFR BLD AUTO 38.6% Below low normal [id number] 40 - 54 [facility] History of Medication Use Medication Directions Dispensed Refills Start Date End Date Stat Sertraline HCl 150 MG Cap 1 capsule. active Lantus SoloStar 100 UNIT/ML prefilled pen injection 42 UNITS SUBCUTANEOUS NIGHTLY 30 DAYS 03/23/2023 active metFORMIN (GLUCOPHAGE-XR) 500 MG 24 hr tablet 1 tablet with evening meal Orally Once a day active Problems Problem Status Onset Date Problem Type Date of Resoluti on Source Acute pain of right shoulder active EncounterDiagnosisAct [facility] Benign neoplasm of right clavicle active EncounterDiagnosisAct [facility] T Encounters Encounter Type Encounter Reason Primary Diagnosis Location Date Emergency Unspecified fall, initial encounter Unspecified fall, initial encounter [facility] 06/02/2023 Ambulatory Pain in right shoulder Pain in right shoulder [place] [facility] 04/07/2023 Ambulatory Pain in right shoulder Pain in right shoulder [place] [facility] 04/07/2023 Amb[place] [email or web address] 04/07/2023 Ambulatory [place] [facility] 04/07/2023 Ambulatory Benign neoplasm of ribs, 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
[2024-10-11 14:21] LABS: Prostate Specific Antigen 0.24 ng/mL (<0.05-4.0)
[2024-10-15 16:54] LABS: Testosterone, Total 423 ng/dL (250-1100)
== END 2024-10-11 12:16 | disposition home or self-care (01) ==
LOC: HO.10HDL 12:15
PROVIDERS: Visit Provider Urology
DX: Z12.5 Encounter for screening for malignant neoplasm of prostate (principal); E29.1 Testicular hypofunction
CPT/HCPCS: 36415; 84153; 84403

== ENCOUNTER 2024-11-15 15:58 | Outpatient (AMB) | payer MEDICAID, SELFPAY ==
--- NOTE | 2024-11-15 16:00 | A.OFFVIS_ITS ---
Intake Visit Reasons: follow up/med review(no showed twice) Intake Note: Patient is present for MED REVIEW F/U Urology Medication:VITAMIN E Antibiotic Allergy:SULFA Blood Thinner:NONE Patient Assessment Coordinator Required: No Allergies Sulfa (Sulfonamide Antibiotics) Allergy (Unknown, Verified 11/15/24 16:01) Unknown HPI Comments Details: Claude is a pleasant male. He is a patient of Dr. Lozano. He is seen for following urologic conditions - Peyronie's disease - urinary urgency and frequency Did not tolerate gel Has been off Suboxone Will try pituitary restart with eclomiphene Follow-up Testosterone 315, free T 51 normal range Peyronie's with prior injections Erectile dysfunction from diabetes - metformin with insulin Suboxone usage Low testosterone 11/16 315, 10/18 425 Did not tolerate testosterone gel Partial response to enclomiphene Might benefit from testosterone pellets Peyronie's disease Primary complaint is - hourglass to normally at base of penis follow-up trauma The problem has been present - recently At this time he experiences - partial erections that under rapid detumescence after penetration [place] has - is possible Associated symptoms include penile pain No penile discharge No Prior management includes - no treatment to date Associated conditions Trial of oral medications with VAC therapy COUNTS INCLUDE 234 BEDS AT THE [facility] Medical History Diabetes mellitus Anxiety HTN (hypertension) Review of Systems Const Denies chills and Denies fever(s) Card Reports no additional complaints and Denies syncope Resp Denies cough GI Denies abdominal pain and Denies heartburn Reports as per HPI and Denies change in libido Neuro Denies syncope Psych Denies change in libido Endo Denies change in libido Physical Exam Const General: cooperative, healthy appearing, comfortable and no acute distress Orientation/consciousness: patient oriented x3 HEENT Face and sinus: Yes normal facial exam Mouth: moist mucous membranes Neck Neck: Yes normal visual inspection, Yes full ROM and Yes trachea midline Chest Chest palpation & inspection: normal inspection of the chest Resp Effort & Inspection: normal respiratory effort, able to speak in complete sentences and no respiratory distress GI Inspection: Yes normal to inspection Back/Spine/Pelvis Cervical Spine: normal cervical lordosis Thoracic/Lumbar Spine: thoracic and lumbar spine normal to inspection Skin General skin exam: no rashes or lesions noted Neuro General: patient oriented x3, gait normal, tone normal and moves all extremities Extrem General: Yes normal to inspection and Yes capillary refill normal Assessment & Plan Assessment & Plan (1) Erectile dysfunction associated with type 2 diabetes mellitus: Code(s): E11.69 - Type 2 diabetes mellitus with other specified complication; N52.1 - Erectile dysfunction due to diseases classified elsewhere Category: Medical (2) Hypogonadism in male: Code(s): E29.1 - Testicular hypofunction Category: Medical Plan Repeat lab work in three-month If still low would initiate testosterone pellet Orders: Orders Prostate Specific Antigen 3 Months E29.1 - Testicular hypofunction Testosterone, Free/Total 3 Months E29.1 - Testicular hypofunction Patient Instructions: This note is constructed using voice recognition software. While every effort has been made to ensure accuracy senior linux administrator errors may have been included. Imaging studies, laboratory and physical exam results were discussed and reviewed in detail. No major barriers to patient understanding were identified. An opportunity to ask questions regarding the treatment plan was provided. All questions were answered. The patient expressed understanding and agreement with the above treatment plan. The patient is aware they should contact our office by phone for worsening of their current condition or the appearance of new urologic symptoms. Compliance is encouraged with any medications and followup testing that is ordered. It is a privilege to participate in the urologic care of your patient. If you have any questions or concerns regarding treatment for the above conditions, or other urologic issues, please do not hesitate to contact me. The office telephone contact is [phone]. Sincerely, Dr David Antoine MD, [facility] - Urology Compassionate Specialist Care for the Genitourinary System Coding Level of Care Code Est Pt Level 3 (18553) Complex EM visit Add On G2211 Diagnoses Erectile dysfunction associated with type 2 diabetes mellitus E11.69; N52.1 Hypogonadism in male E29.1
--- OUTSIDE RECORDS SUMMARY | 2024-11-15 16:00 | XMS_ITS | Clinical Summary ---
Author Organization [address] Address [address] [place] [phone] Phone Care Team Providers Care Store Loss Prevention Manager Name Role Phone Unavailable Primary Care Provider [...]
== END 2024-11-15 16:25 | disposition home or self-care (01) ==
LOC: HO.HUSH 15:58
PROVIDERS: PCP Internal Medicine; Visit Provider Urology
DX: E11.69 Type 2 diabetes mellitus with other specified complication (principal); N52.1 Erectile dysfunction due to diseases classified elsewhere; E29.1 Testicular hypofunction
CPT/HCPCS: 99499